=== PATIENT | female | born 2000 | race African-American/Black ===

== ENCOUNTER 2023-11-18 13:50 | Emergency (ER) | payer OTHER ==
[~2023-11-18] VITALS: Ht 160 cm; Wt 63.0 kg
[2023-11-18 13:50] VITALS: BP 101/72; TEMP 98.3
[2023-11-18] MEDS ORDERED: LIDOCAINE VISCOUS 2% UD 15 ML UDC ONE (14:43)
[2023-11-18] MEDS ORDERED: LIDOCAINE 1% INJ 50 ML MDV IJ ONE (14:43)
[2023-11-18] MEDS: LIDOCAINE VISCOUS 2% UD 15 ML UDC MM ONE (15:09)
[2023-11-18] MEDS ORDERED: IBUP-1955 PO (16:16)
[2023-11-18] MEDS ORDERED: ACET-2605 PO (16:16)
[2023-11-18] MEDS ORDERED: HYDR-4209 PO (16:16)
[2023-11-18] MEDS ORDERED: HYDROCODONE/APAP 5/325MG TABLET ONE (16:28)
[2023-11-18] MEDS: dexaMETHasone SOD PHOSPHATE 10 MG/ML VIAL MC ONE (16:32)
[2023-11-18] MEDS: HYDROCODONE/APAP 5/325MG TABLET PO ONE (16:33)
[2023-11-18 17:09] VITALS: O2SAT 100
== END 2023-11-18 17:10 | disposition home or self-care (01) ==
LOC: ER 13:55
DX: J36 Peritonsillar abscess (principal); Z60.2 Problems related to living alone
CPT/HCPCS: 99283; J1100; J3490

== ENCOUNTER 2023-11-20 18:50 | Emergency (ER) | payer OTHER ==
[~2023-11-20] VITALS: Ht 160 cm; Wt 63.0 kg
[~2023-11-20 18:50] MED LIST: ACET-2605 PO; HYDR-4209 PO; IBUP-1955 PO
[2023-11-20 19:27] LABS: BASOPHILS % (AUTO) 0.6 % (0.0-2.0); EOSINOPHILS # (AUTO) 0.1 K/uL (0.0-0.7); EOSINOPHILS % (AUTO) 1.7 % (0.0-6.0); HEMATOCRIT 30 % (33-45); HEMOGLOBIN 9.6 g/dL (11.5-14.8); LYMPHOCYTES # (AUTO) 1.3 K/uL (0.8-4.8); LYMPHOCYTES % (AUTO) 27.7 % (20.0-44.0); MEAN CORPUSCULAR HEMOGLOBIN 22 PG (26.0-33.0); MEAN CORPUSCULAR HGB CONC 32 g/dl (31.0-36.0); MEAN CORPUSCULAR VOLUME 68 fL (82-100); MONOCYTES # (AUTO) 0.6 K/uL (0.1-1.30); MONOCYTES % (AUTO) 13.2 % (2.0-12.0); NEUTROPHILS # (AUTO) 2.7 K/uL (1.8-8.9); NEUTROPHILS % (AUTO) 56.8 % (43.0-81.0); PLATELET COUNT (AUTO) 298 K/uL (150-450); RED BLOOD CELL COUNT(AUTO) 4.44 MIL/uL (4.0-5.2); RED CELL DISTRIBUTION WIDTH 17.3 % (11.5-15.0); WHITE BLOOD COUNT (AUTO) 4.8 K/uL (4.3-11.0)
[2023-11-20] MEDS ORDERED: MORPHINE SULFATE INJ 2 MG/ML DISP.SYRIN IV ONE (19:30)
[2023-11-20] MEDS ORDERED: KETOROLAC TROMETHAMINE 15 MG/ML VIAL ONE (19:41)
[2023-11-20] MEDS ORDERED: dexaMETHasone SOD PHOSPHATE 1 ML ONE (19:41)
[2023-11-20 19:46] LABS: CALCIUM, SERUM 9.2 mg/dL (8.5-10.1); CREATININE 0.9 mg/dL (0.6-1.3); POTASSIUM 3.3 mmol/L (3.5-5.1)
[2023-11-20 19:54] LABS: ALBUMIN 2.9 g/dL (3.4-5.0); BILIRUBIN,DIRECT 0.1 mg/dL (0.0-0.2); BILIRUBIN,TOTAL 0.3 mg/dL (0.2-1.0); TOTAL PROTEIN, SERUM 7.6 g/dL (6.4-8.2)
[2023-11-20] MEDS: IV NS 0.9% 1,000 ML BAG IV ONE (19:54)
[2023-11-20] MEDS: dexaMETHasone SOD PHOSPHATE 10 MG/ML VIAL IV ONE (19:54)
[2023-11-20] MEDS: KETOROLAC TROMETHAMINE 15 MG/ML VIAL IV ONE (19:55)
[2023-11-20] MEDS: AMOX/CLAVULANATE 875 MG TABLET PO ONE (20:34)
[2023-11-20 20:36] VITALS: BP 104/64; TEMP 98; O2SAT 95
[2023-11-20 21:07] LABS: EOSINOPHILS % (MANUAL) 2 % (0-4); LYMPHOCYTES % (MANUAL) 32 % (16-48); MONOCYTES % (MANUAL) 8 % (0-11.0); NEUTROPHILS % (MANUAL) 58 (42-76); PLATELET ESTIMATE ADEQUATE
[2023-11-20 21:08] LABS: ANISOCYTOSIS 1+
== END 2023-11-20 20:37 | disposition home or self-care (01) ==
LOC: ER 18:56
DX: J36 Peritonsillar abscess (principal); Z60.2 Problems related to living alone
CPT/HCPCS: 99284; 96374; 96361; 96375; 85025; 80048; 80076; 36415; 85007; J1100; J7030; J1885